=== PATIENT | female | born 2000 | race Caucasian/White ===

== ENCOUNTER 2022-06-30 09:32 | Emergency (ER) | payer OTHER ==
[~2022-06-30] VITALS: Ht 144.8 cm; Wt 47.6 kg
[2022-06-30 09:34] VITALS: BP 119/81
--- NOTE | 2022-06-30 09:41 | NUR ---
patient ambulated to bed 9.
[2022-06-30] MEDS ORDERED: NACL 0.9% 1,000 ML IV SCH (09:50)
[2022-06-30] MEDS ORDERED: ONDANSETRON 4 MG/2 ML VIAL IVP ONE (09:50)
--- NOTE | 2022-06-30 10:13 | NUR ---
21 yo/f presents to ED w c/o R upper abdominal pain 10/10 pressure radiating down int x1 month worse today, + nausea, + subjective fevers, +diarrhea x1 episode yesterday (no blood). pmh: denies allergies: denies
[2022-06-30] MEDS ORDERED: KETOROLAC 15 MG/ML VIAL IVP ONE (10:25)
--- NOTE | 2022-06-30 10:28 | NUR ---
pt at ct
[2022-06-30 10:41] LABS: BASOPHILS % (AUTO) 0.3 % (0.0-2.0); EOSINOPHILS % (AUTO) 0.3 % (0.0-4.0); HEMATOCRIT 38.5 % (36-48); LYMPHOCYTES # (AUTO) 1.2 K/uL (2.5-16.5); LYMPHOCYTES % (AUTO) 11.1 % (20.5-51.1); MEAN CORPUSCULAR HEMOGLOBIN 29 pg (27-31); MEAN CORPUSCULAR HGB CONC 34 g/dL (33-37); MEAN CORPUSCULAR VOLUME 85.3 fL (80-94); MONOCYTES # (AUTO) 0.6 K/uL (0.8-1.0); MONOCYTES % (AUTO) 5.1 % (1.7-9.3); NEUTROPHILS # (AUTO) 9.1 K/uL (1.8-7.7); NEUTROPHILS % (AUTO) 83.2 % (42.2-75.2); PLATELET COUNT (AUTO) 335 K/uL (140-450); RED BLOOD CELL COUNT(AUTO) 4.51 MIL/uL (4.20-5.40); RED CELL DISTRIBUTION WIDTH 13.9 % (11.6-13.7); WHITE BLOOD COUNT (AUTO) 10.9 K/uL (4.5-11.0)
[2022-06-30 10:54] LABS: ALBUMIN 3.7 g/dL (3.4-5.0); ANION GAP 11.7 (8-16); CARBON DIOXIDE 28.9 mmol/L (21-32); CREATININE 0.7 mg/dL (0.6-1.3); POTASSIUM 3.6 mmol/L (3.5-5.1); TOTAL BILIRUBIN 0.4 mg/dL (0.0-1.0)
[2022-06-30 11:17] LABS: BILIRUBIN,URINE NEGATIVE (NEGATIVE); BLOOD, URINE 1+ (NEGATIVE); COLOR,URINE YELLOW (YELLOW); LEUKOCYTE ESTERASE ,URINE 2+ (NEGATIVE); NITRITE, URINE NEGATIVE (NEGATIVE); UGLUCOSE NEGATIVE (NEGATIVE)
[2022-06-30 11:26] LABS: APPEARANCE,URINE HAZY (CLEAR); RBC,URINE 0-5 /HPF (0-5); WBC,URINE 16-25 (MOD) /HPF (0-5)
[2022-06-30 11:33] LABS: BARBITURATE, URINE NEGATIVE ng/ml (NEG <=200); BENZODIAZEPINE, URINE NEGATIVE ng/mL (NEG <=200); CANNABINOID, URINE NEGATIVE ng/mL (NEG <=50); COCAINE, URINE NEGATIVE ng/mL (NEG <=300); OPIATE, URINE NEGATIVE ng/mL (NEG <=2000); PHENCYCLIDINE SCREEN,URINE NEGATIVE ng/mL (NEG <=25)
--- NOTE | 2022-06-30 12:20 | NUR ---
Female Pigskin Trimmer accompanied female patient for Pelvic Exam. wet mount sample collected by stella smith, sample sent to lab.
[2022-06-30] MEDS ORDERED: cefTRIAXone 1,000 MG VIAL ONE (13:49)
[2022-06-30] MEDS ORDERED: CEPH500C16 PO (14:37)
[2022-06-30] MEDS ORDERED: IBUP-2213 PO (14:37)
[2022-06-30 15:17] VITALS: BP 130/79
--- NOTE | 2022-06-30 15:17 | NUR ---
Patient discharged with v/s stable. Written and verbal after care instructions given. Patient alert, oriented and verbalized understanding of instructions. Ambulatory with steady gait. All questions addressed prior to discharge. ID band removed. Patient advised to follow up with PMD. Rx of IBUPROFEN AND KEFLEX given. Opportunity to ask questions provided and answered.
--- NOTE | 2022-06-30 15:18 | NUR ---
The patient's care was reviewed and supervised by Juanita Jim, RN, RN.
== END 2022-06-30 15:17 | disposition home or self-care (01) ==
LOC: MED 09:32
DX: N30.01 Acute cystitis with hematuria (principal); Z79.899 Other long term (current) drug therapy
CPT/HCPCS: 36415; 74177; 76830; 80053; 80305; 81001; 81025; 83690; 85025; 87086; 87210; 93976; 96361; 96365; 96375; 99285; J0696; J1885; J2405; J7030; Q0092; Q9967